=== PATIENT | male | born 1980 | race Hispanic/Latino ===

== ENCOUNTER 2025-01-01 17:17 | Emergency (ER) | payer OTHER ==
[~2025-01-01] VITALS: Ht 182.9 cm; Wt 86.2 kg
[2025-01-01 17:37] VITALS: PULSE 70; RESP 16; TEMP 98
[2025-01-01] MEDS ORDERED: NAPROSYN500 MG PO (18:55)
[2025-01-01] MEDS ORDERED: ORPHENADRINE C100 MG PO (18:55)
[2025-01-01] MEDS: ORPHENADRINE CITRATE 30 MG/ML VIAL IM ONE (19:04)
[2025-01-01 19:27] VITALS: BP 128/89; PULSE 62; RESP 20; O2SAT 100
[2025-01-01] MEDS: KETOROLAC TROMETHAMINE 60 MG/2 ML VIAL IM ONE (19:27)
== END 2025-01-01 19:29 | disposition home or self-care (01) ==
LOC: ER 18:38
DX: M25.512 Pain in left shoulder (principal); S46.812A Strain of other muscles, fascia and tendons at shoulder and upper arm level, left arm, initial encounter; M62.838 Other muscle spasm; F17.210 Nicotine dependence, cigarettes, uncomplicated
CPT/HCPCS: 99284; J1885; J2360